=== PATIENT | female | born 1970 | race Caucasian/White ===

== ENCOUNTER 2016-12-24 07:58 | Day surgery (SDC) | payer OTHER ==
[~2016-12-24] VITALS: Ht 165.1 cm; Wt 69.5 kg
[~2016-12-24 07:58] MED LIST: ENDOCET 10-3251 EACH PO; FLEXERIL10 MG PO; LODINE500 MG PO; NEURONTIN600 MG PO; OXYCONTIN20 MG PO; ZOLOFT50 MG PO
[2016-12-24 08:44] VITALS: BP 138/91
[2016-12-24] MEDS ORDERED: OXYCODONE HCL5 MG PO (12:32)
[2016-12-24 13:17] VITALS: BP 133/73
[2016-12-24 14:30] VITALS: BP 130/70
== END 2016-12-24 15:10 | disposition home or self-care (01) ==
LOC: SDC 07:58
PROC: 0SB20ZZ Excision of Lumbar Vertebral Disc, Open Approach (ICD-10-PCS; principal; 2016-12-24)
DX: M51.16 Intervertebral disc disorders with radiculopathy, lumbar region (principal); M48.06 Spinal stenosis, lumbar region; G83.4 Cauda equina syndrome; F17.210 Nicotine dependence, cigarettes, uncomplicated; R53.1 Weakness; R20.0 Anesthesia of skin
CPT/HCPCS: 72100; 76000; J0131; J0690; J1100; J1170; J2250; J2405; J2710; J3010